=== PATIENT | female | born 1965 | race Caucasian/White ===

== ENCOUNTER 2017-01-15 18:33 | Emergency (ER) | payer OTHER ==
--- NOTE | ~2017-01-15 | CR253 ---
[facility]. [facility] A Service of [facility] & [facility] RADIOLOGY TEXT RESULTS PATIENT: TRANG NAVARRO LOCATION: SED : 65 UNIT #: [id number] AGE: [address]: Mckayla Saunders APRN SEX: F ORDER DR: [id number] [place] [id number] E MR#: [id number] Acc #: [id number] NAME: TRANG NAVARRO : 1965 SEX: F STUDY DATE/TIME: 01/15/2017 18:24 UNIT: SED ROOM: STUDY DESCRIPTION: CR Tibia and Fibula 2 Views Rt Attending Physician: Mckayla Saunders A.P.R.N. Referring Physician: Mckayla Saunders A.P.R.N. Ordering Physician: Mckayla Akins A.P.R.N. Primary Care Physician: Primary Care Physician No MEDICAL IMAGING REPORT This report is preliminary unless electronic signature is present. EXAM Right lower leg HISTORY Twisted right lower leg, ankle, falling in pond FINDINGS 2 views of the right lower leg demonstrate no fracture or dislocation. Minimal degenerative changes of the knee. Visualized ankle joint unremarkable. Soft tissues unremarkable. IMPRESSION Negative right lower leg. Dictated by... Mehdi Carvalho M.D. THIS IS AN ELECTRONICALLY VERIFIED REPORT Mehdi Carvalho M.D. at 01/16/2017 10:52 PM TIMUR/laura TD: 01/16/2017 10:39 JOB #: [id number] MEDICAL IMAGING REPORT Page 1 of 1
[~2017-01-15 18:33] MED LIST: ADDERALL20 MG; ALBUTEROL17 GM; BUSPAR15 M1; GABAPENTIN300 MG; SYMBICORT80; TRAMADOL HCL150 MG; ZOLOFT20 MG/1 ML
== END 2017-01-15 19:54 | disposition home or self-care (01) ==
LOC: SED 18:33
DX: S93.401A Sprain of unspecified ligament of right ankle, initial encounter (principal); F32.9 Major depressive disorder, single episode, unspecified; Z90.710 Acquired absence of both cervix and uterus; W19.XXXA Unspecified fall, initial encounter; Y93.89 Activity, other specified; Y92.009 Unspecified place in unspecified non-institutional (private) residence as the place of occurrence of the external cause
CPT/HCPCS: 29540; 73590; 99283